=== PATIENT | male | born 1970 | race Caucasian/White ===

== ENCOUNTER 2022-12-22 12:10 | Observation (INO) ==
--- NOTE | 2022-12-22 12:29 | Emergency Department Note ---
Impression & Plan Acute hypotension, Elevated lactic acid level ED Provider Note HISTORY OF PRESENT ILLNESS: Patient is a 52-year-old male presenting with hypotension and bradycardia. Patient was at an outpatient clinic getting an endoscopy done when postprocedure he was noted to be hypotensive and bradycardic. On review of documentation, he was given a total of 100 mg IV propofol and 80 mg IV lidocaine for the procedure. Throughout the procedure, he required multiple doses of esmolol, totaling 80 mg and 600 mcg IV phenylephrine. Given his persistent hypotension and bradycardia, he was transferred to the ER. In route, patient was vitally stable per EMS. On arrival to the ER, patient has no complaints. He denies any chest pain or shortness of breath. He does not wear any supplemental oxygen at home. Denies any DVT or PE history. ROS: as above PHYSICAL EXAM: Constitutional: Patient appears in no acute distress. HENT: Head: Normocephalic and atraumatic. Eyes: EOMI, PERRL Mouth/Throat: Mucous membranes moist. Neck: Trachea midline. Neck supple. Cardiovascular: Tachycardic with irregularly irregular rhythm. No murmurs, rubs or gallops. Intact distal pulses. Pulmonary/Chest: No respiratory distress. Breath sounds clear and equal bilaterally. No wheezes or rales. Abdominal: Abdomen soft, no tenderness, rebound or guarding. Musculoskeletal: No edema, tenderness or deformity noted. Skin: Warm and dry. No rash, erythema, pallor or cyanosis Psychiatric: Appropriate mood and affect for situation. Neurological: Alert and keenly responsive. CN II-XII grossly intact, moving all extremities equally and fully. MDM: - Vitals signs showed hypertension and tachycardia. - History obtained via patient and EMS. Patient presents with hypotension and bradycardia. Patient was at outpatient clinic to get an endoscopy when he was noted to be hypotensive and bradycardic postprocedure. He was given multiple medications postprocedure with little improvement in his blood pressures and was sent to the ER for further evaluation. Patient denies any DVT or PE history. He has no complaints on arrival to the ER. - Chronic conditions affecting care: HTN; HLD; COPD; Afib - Differential diagnoses include, but are not limited to: Sepsis; pneumonia; UTI; medication side effect; electrolyte abnormality dysrhythmia - Order placed for continuous cardiac monitoring. At this time, monitor showed rate of 85 bpm with irregular rhythm, per my interpretation. - External medical records reviewed. Documentation from [facility] was reviewed. Patient was given a total of 80 mg IV esmolol, 600 mcg IV phenylephrine, 100 mg IV propofol and 80 mg IV lidocaine during procedure today. - EKG reviewed by myself showed atrial fibrillation with rapid ventricular rate. Rate 141 bpm. QTc 462. No acute ischemic changes - Unable to rate control the patient with Cardizem at this time, given his hypotension. - Laboratory workup interpreted by myself showed normal WBC; stable electrolytes; slight transaminitis (AST 50; ALT 85); normal troponin; slightly elevated BNP (166) - CXR showed left basilar opacity, per my interpretation. - Patient given a total of 2L NS (between EMS prehopital and ER administration). - Patient's BP trended down while in the ER and despite the 2L NS, he remained hypotensive and tachycardic. Decision was made to start patient on levophed for BP support. His BP improved and his HR became more controlled in the 80s. Patient was taken off of the Levophed and his blood pressure again dropped. Levophed was restarted. After about 30 minutes, he was weaned off of Levophed and blood pressure remained steady. - Repeat lactic acid level was improved after 2 L normal saline fluid hydration. - Blood cultures were obtained, but antibiotics were not administered as do not think this is sepsis in origin. He has a normal white blood cell count normal procalcitonin level. He has not had any fevers. Believe his persistent hypo tension is likely secondary to his procedure and medication administration earlier today. - CT PE negative for pulmonary embolism. - Discussion was had with social services analyst about patient's case and need for admission - Hospitalist consulted for admission - Patient admitted to [facility] Hospitalist service for further evaluation and management. I provided 43 minutes of critical care time to this patient's care outside of billable procedures. ASSESSMENT AND PLAN: Diagnosis: hypotension; elevated lactic acid level Plan: admit Past Med/Surg History Medical History (Updated 12/22/22 @ 16:18 by Ibis Cuevas MD) Anxiety Atrial fibrillation Chronic obstructive pulmonary disease inhalers daily Hyperlipidemia Hypertension Osteoarthritis Surgical History History of tooth extraction under local Family History Brother Family hx of colon cancer Other No family history of adverse response to anesthesia Social History Smoking Status: Unknown if ever smoked Tobacco Type: Cigarettes Cigarettes Per Day: 10 a day; Second Hand Exposure: Yes (fiance smokes, dad smoked); Do You Dip or Chew Tobacco: No; Hx Alcohol Use: Yes Alcohol type: beer, wine and hard liquor Hx Substance Use: No Preferred Language: Estonian Communication Ability: Effective 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 Beliefs That Will Affect Care: None Current Living Situation: Other Current Living Situation Comment: Lives with chrissie Feels Safe at Home: Yes Assistive Devices: Glasses Allergies Allergies Allergy/AdvReac Type Severity Reaction Status Date / Time No Known Allergies Allergy Mild Verified 01/22/21 23:24 Home Meds Home Medications Medication Instructions Recorded Confirmed albuterol sulfate 90 mcg/actuation 1 puff inhalation Q4 PRN Shortness 05/22/18 12/22/22 aerosol inhaler Of Breath aspirin 325 mg tablet 325 mg PO QAM 05/22/18 12/22/22 atorvastatin 20 mg tablet 20 mg PO HS 05/22/18 12/22/22 fluticasone propionate 110 2 puff inhalation BID PRN 05/22/18 12/22/22 mcg/actuation HFA aerosol inhaler Shortness Of Breath (Flovent HFA) metoprolol tartrate 25 mg tablet 12.5 mg PO BID 05/22/18 12/22/22 omega-3 fatty acids-fish oil 360 1 cap PO QAM 05/22/18 12/22/22 mg-1,200 mg capsule (Fish Oil) tiotropium bromide 18 mcg capsule 1 cap inhalation QAM 05/22/18 12/22/22 with inhalation device (Spiriva with HandiHaler) aripiprazole 15 mg tablet 7.5 mg PO DAILY 01/22/21 12/22/22 buspirone 10 mg tablet 10 mg PO BID PRN Anxiety 01/22/21 12/22/22 escitalopram oxalate 5 mg tablet 5 mg PO QAM 01/22/21 12/22/22 gabapentin 300 mg capsule 600 mg PO BID 01/22/21 12/22/22 hydroxyzine HCl 10 mg tablet 10 mg PO QID PRN Anxiety 01/22/21 12/22/22 ipratropium 20 mcg-albuterol 100 1 puff inhalation QID 01/22/21 12/22/22 mcg/actuation mist for inhalation (Combivent Respimat) meloxicam 15 mg tablet 15 mg PO DAILY 01/22/21 12/22/22 omeprazole 20 mg capsule,delayed 20 mg PO DAILY 12/22/22 12/22/22 release Results & Data (ED) Vital Signs Vital Signs - 24 hr 12/22/22 12:23 12/22/22 13:00 12/22/22 12:30 Temperature 36.6 C Temperature Source Oral Pulse Rate 126 H 144 H 146 H Pulse Rate from SpO2 Sensor 88 Respiratory Rate 18 16 Blood Pressure 102/62 88/69 L Blood Pressure Mean 75 75 Blood Pressure Position Sitting Pulse Oximetry 91 91 Oxygen Delivery Method Room Air Room Air Sepsis Recent Fever Within 48 Hours No Sepsis New/Unexplained Change in Mental Status No Sepsis Action Taken by Nursing No Action Required 12/22/22 12:47 12/22/22 13:02 12/22/22 13:15 Temperature Temperature Source Pulse Rate 122 H 131 H 100 H Pulse Rate from SpO2 Sensor 83 98 H 91 H Respiratory Rate 18 14 16 Blood Pressure 89/68 L 83/64 L 89/54 L Blood Pressure Mean 75 70 65 Blood Pressure Position Pulse Oximetry 93 94 93 Oxygen Delivery Method Room Air Room Air Room Air Sepsis Recent Fever Within 48 Hours Sepsis New/Unexplained Change in Mental Status Sepsis Action Taken by Nursing 12/22/22 13:30 12/22/22 13:46 12/22/22 13:54 Temperature Temperature Source Pulse Rate 116 H 132 H 96 H Pulse Rate from SpO2 Sensor 90 100 H 98 H Respiratory Rate 18 15 18 Blood Pressure 92/62 L 71/55 L 126/77 Blood Pressure Mean 72 60 93 Blood Pressure Position Pulse Oximetry 96 95 93 Oxygen Delivery Method Room Air Room Air Room Air Sepsis Recent Fever Within 48 Hours Sepsis New/Unexplained Change in Mental Status Sepsis Action Taken by Nursing 12/22/22 13:56 12/22/22 14:00 12/22/22 14:05 Temperature Temperature Source Pulse Rate 82 90 89 Pulse Rate from SpO2 Sensor 79 89 84 Respiratory Rate 16 18 18 Blood Pressure 106/82 105/87 116/88 Blood Pressure Mean 90 93 97 Blood Pressure Position Pulse Oximetry 96 96 95 Oxygen Delivery Method Room Air Room Air Room Air Sepsis Recent Fever Within 48 Hours Sepsis New/Unexplained Change in Mental Status Sepsis Action Taken by Nursing 12/22/22 14:14 12/22/22 14:16 12/22/22 14:26 Temperature Temperature Source Pulse Rate 86 83 Pulse Rate from SpO2 Sensor 82 83 Respiratory Rate 16 16 16 Blood Pressure 155/112 H 153/115 H 154/91 H Blood Pressure Mean 117 127 112 Blood Pressure Position Pulse Oximetry 96 97 97 Oxygen Delivery Method Room Air Room Air Room Air Sepsis Recent Fever Within 48 Hours Sepsis New/Unexplained Change in Mental Status Sepsis Action Taken by Nursing 12/22/22 14:31 12/22/22 14:36 12/22/22 14:40 Temperature Temperature Source Pulse Rate 84 84 111 H Pulse Rate from SpO2 Sensor 83 82 111 H Respiratory Rate 18 20 17 Blood Pressure 149/111 H 138/100 85/69 L Blood Pressure Mean 123 112 74 Blood Pressure Position Pulse Oximetry 96 96 93 Oxygen Delivery Method Room Air Room Air Room Air Sepsis Recent Fever Within 48 Hours Sepsis New/Unexplained Change in Mental Status Sepsis Action Taken by Nursing 12/22/22 14:50 12/22/22 14:55 12/22/22 15:01 Temperature Temperature Source Pulse Rate 100 H 87 71 Pulse Rate from SpO2 Sensor 102 H 92 H 77 Respiratory Rate 18 16 16 Blood Pressure 87/63 L 103/78 134/96 Blood Pressure Mean 71 86 108 Blood Pressure Position Pulse Oximetry 92 95 97 Oxygen Delivery Method Room Air Room Air Room Air Sepsis Recent Fever Within 48 Hours Sepsis New/Unexplained Change in Mental Status Sepsis Action Taken by Nursing 12/22/22 15:05 12/22/22 15:10 12/22/22 15:15 Temperature Temperature Source Pulse Rate 88 75 76 Pulse Rate from SpO2 Sensor 91 H 77 72 Respiratory Rate 18 18 12 Blood Pressure 140/82 162/120 H 143/108 H Blood Pressure Mean 101 134 119 Blood Pressure Position Pulse Oximetry 94 96 95 Oxygen Delivery Method Room Air Room Air Room Air Sepsis Recent Fever Within 48 Hours Sepsis New/Unexplained Change in Mental Status Sepsis Action Taken by Nursing 12/22/22 15:20 12/22/22 15:25 12/22/22 15:42 Temperature Temperature Source Pulse Rate 86 94 H 114 H Pulse Rate from SpO2 Sensor 82 Respiratory Rate 10 L 12 12 Blood Pressure 146/107 H 156/107 H 105/72 Blood Pressure Mean 120 123 83 Blood Pressure Position Pulse Oximetry 96 94 94 Oxygen Delivery Method Room Air Room Air Room Air Sepsis Recent Fever Within 48 Hours Sepsis New/Unexplained Change in Mental Status Sepsis Action Taken by Nursing Laboratory Data 12/22/22 12:41 12/22/22 12:41 Lab Results 12/22/22 12/22/22 12/22/22 Range/Units 12:41 12:41 12:41 WBC 8.72 (4.8-10.8) K/ul RBC 4.62 L (4.70-6.10) M/uL Hgb 15.0 (14.0-18.0) g/dl Hct 42.3 (42.0-52.0) % MCV 91.6 (80.0-100.0) fL MCH 32.5 (25.0-34.0) pg MCHC 35.5 (32.0-36.0) g/dL RDW Std Deviation 41.2 (36.4-46.3) fL RDW Coeff of Nhi 12.4 (11.5-14.5) % Plt Count 194 (130-400) K/uL MPV 11.2 (9.4-12.4) fL Immature Gran % (Auto) 0.7 % Neut % (Auto) 63.5 % Lymph % (Auto) 22.7 % Mchenry % (Auto) 7.1 % Eos % (Auto) 5.2 % Baso % (Auto) 0.8 % Neut # (Auto) 5.54 (1.40-6.50) K/uL Lymph # (Auto) 1.98 (1.20-3.40) K/uL Mchenry # (Auto) 0.62 H (0.11-0.59) K/uL Eos # (Auto) 0.45 (0.00-0.50) K/uL Baso # (Auto) 0.07 (0.00-0.20) K/uL Immature Gran # (Auto) 0.06 (0.01-0.20) K/uL PT 11.3 (9.0-12.0) Seconds INR 1.0 (0.9-1.1) Sodium 137 (136-145) mmol/L Potassium 4.5 (3.5-5.1) mmol/L Chloride 104 (98-107) mmol/L Carbon Dioxide 27 (21-32) mmol/L Anion Gap 6 (3-11) BUN 19 (6-23) mg/dl Creatinine 1.18 (0.6-1.4) mg/dl Est Cr Clr Drug Dosing 98.3 ml/min Est GFR ( Amer) 80.6 ml/min Est GFR (Non-Af Amer) 69.5 ml/min BUN/Creatinine Ratio 16.1 (10-20) Glucose 90 (70-99(Fasting)) mg/dl Lactate (0.4-2.0) mmol/L Calcium 8.1 L (8.6-10.3) mg/dl Total Bilirubin 0.6 (0.2-1.0) mg/dl AST 50 H (13-39) U/L ALT 85 H (7-52) U/L Alkaline Phosphatase 78 (34-104) U/L Troponin I High Sens 8.8 (0-20) pg/ml B-Natriuretic Peptide (0-100) pg/ml Total Protein 6.0 (6.0-8.3) gm/dl Albumin 3.8 (3.4-5.0) gm/dl Globulin 2.2 L (2.5-4.0) gm/dl Albumin/Globulin Ratio 1.7 (0.9-2) Procalcitonin (0-0.5) ng/ml 12/22/22 12/22/22 12/22/22 Range/Units 12:41 14:12 14:12 WBC (4.8-10.8) K/ul RBC (4.70-6.10) M/uL Hgb (14.0-18.0) g/dl Hct (42.0-52.0) % MCV (80.0-100.0) fL MCH (25.0-34.0) pg MCHC (32.0-36.0) g/dL RDW Std Deviation (36.4-46.3) fL RDW Coeff of Nhi (11.5-14.5) % Plt Count (130-400) K/uL MPV (9.4-12.4) fL Immature Gran % (Auto) % Neut % (Auto) % Lymph % (Auto) % Mchenry % (Auto) % Eos % (Auto) % Baso % (Auto) % Neut # (Auto) (1.40-6.50) K/uL Lymph # (Auto) (1.20-3.40) K/uL Mchenry # (Auto) (0.11-0.59) K/uL Eos # (Auto) (0.00-0.50) K/uL Baso # (Auto) (0.00-0.20) K/uL Immature Gran # (Auto) (0.01-0.20) K/uL PT (9.0-12.0) Seconds INR (0.9-1.1) Sodium (136-145) mmol/L Potassium (3.5-5.1) mmol/L Chloride (98-107) mmol/L Carbon Dioxide (21-32) mmol/L Anion Gap (3-11) BUN (6-23) mg/dl Creatinine (0.6-1.4) mg/dl Est Cr Clr Drug Dosing ml/min Est GFR ( Amer) ml/min Est GFR (Non-Af Amer) ml/min BUN/Creatinine Ratio (10-20) Glucose (70-99(Fasting)) mg/dl Lactate 2.3 H* (0.4-2.0) mmol/L Calcium (8.6-10.3) mg/dl Total Bilirubin (0.2-1.0) mg/dl AST (13-39) U/L ALT (7-52) U/L Alkaline Phosphatase (34-104) U/L Troponin I High Sens (0-20) pg/ml B-Natriuretic Peptide 166 H (0-100) pg/ml Total Protein (6.0-8.3) gm/dl Albumin (3.4-5.0) gm/dl Globulin (2.5-4.0) gm/dl Albumin/Globulin Ratio (0.9-2) Procalcitonin < 0.05 (0-0.5) ng/ml 12/22/22 Range/Units 16:00 WBC (4.8-10.8) K/ul RBC (4.70-6.10) M/uL Hgb (14.0-18.0) g/dl Hct (42.0-52.0) % MCV (80.0-100.0) fL MCH (25.0-34.0) pg MCHC (32.0-36.0) g/dL RDW Std Deviation (36.4-46.3) fL RDW Coeff of Nhi (11.5-14.5) % Plt Count (130-400) K/uL MPV (9.4-12.4) fL Immature Gran % (Auto) % Neut % (Auto) % Lymph % (Auto) % Mchenry % (Auto) % Eos % (Auto) % Baso % (Auto) % Neut # (Auto) (1.40-6.50) K/uL Lymph # (Auto) (1.20-3.40) K/uL Mchenry # (Auto) (0.11-0.59) K/uL Eos # (Auto) (0.00-0.50) K/uL Baso # (Auto) (0.00-0.20) K/uL Immature Gran # (Auto) (0.01-0.20) K/uL PT (9.0-12.0) Seconds INR (0.9-1.1) Sodium (136-145) mmol/L Potassium (3.5-5.1) mmol/L Chloride (98-107) mmol/L Carbon Dioxide (21-32) mmol/L Anion Gap (3-11) BUN (6-23) mg/dl Creatinine (0.6-1.4) mg/dl Est Cr Clr Drug Dosing ml/min Est GFR ( Amer) ml/min Est GFR (Non-Af Amer) ml/min BUN/Creatinine Ratio (10-20) Glucose (70-99(Fasting)) mg/dl Lactate 2.0 (0.4-2.0) mmol/L Calcium (8.6-10.3) mg/dl Total Bilirubin (0.2-1.0) mg/dl AST (13-39) U/L ALT (7-52) U/L Alkaline Phosphatase (34-104) U/L Troponin I High Sens (0-20) pg/ml B-Natriuretic Peptide (0-100) pg/ml Total Protein (6.0-8.3) gm/dl Albumin (3.4-5.0) gm/dl Globulin (2.5-4.0) gm/dl Albumin/Globulin Ratio (0.9-2) Procalcitonin (0-0.5) ng/ml Administered Medications Norepinephrine Bitartrate (Levophed/D5w) 4 mg in 250 mls @ 26.288 mls/hr IV .Q9H31M [facility]; Protocol Stop: 01/21/23 13:59 Last Titration: 12/22/22 15:35 Dose: 0 mcg/kg/min, 0 mls/hr Documented By: Admin: 12/22/22 13:52 Dose: 0.05 mcg/kg/min, 26.3 mls/hr Documented By: QGV Co-signed By: AM Discontinued Medications Sodium Chloride (Nss) 500 mls @ 999 mls/hr IV .Q31M ONE Stop: 12/22/22 13:15 Last Infusion: 12/22/22 13:45 Dose: 0 mls/hr Documented By: Admin: 12/22/22 12:59 Dose: 999 mls/hr Documented By: QGV Sodium Chloride (Nss) 1,000 mls @ 999 mls/hr IV .Q1H1M ONE Stop: 12/22/22 14:17 Last Infusion: 12/22/22 16:03 Dose: 0 mls/hr Documented By: Admin: 12/22/22 13:45 Dose: 999 mls/hr Documented By: QGV Ioversol (Optiray 320 500ml) 112 ml IV ONCE ONE Stop: 12/22/22 15:38 Last Admin: 12/22/22 15:37 Dose: 112 ml Documented By: CECY Imaging Data Radiologist's Impression: Chest X-Ray 12/22/22 12:29 XR chest 1V portable CLINICAL HISTORY: hypoxia COMPARISON STUDY: No previous studies for comparison. FINDINGS: No pneumothorax or pleural effusion is noted. Apparent left basilar opacity is likely artifactual. Exam is compromised by suboptimal penetration. Cardiac size is at upper limits of normal. There is no evidence for pulmonary edema. Lung volumes are mildly diminished. IMPRESSION: 1. No definite acute cardiopulmonary findings. 2. Apparent left basilar opacity which is likely artifactual. ACT 112: Negative or not required by law. Electronically signed by: Hollis Cheung M.D. 12/22/2022 1:11 PM Chest CTA 12/22/22 15:03 CT ANGIOGRAPHY OF THE CHEST, PULMONARY EMBOLUS PROTOCOL CLINICAL HISTORY: Bradycardia and hypotension during recent procedure. Evaluate for pulmonary embolus. COMPARISON STUDY: Chest radiograph performed earlier today. TECHNIQUE: Following IV administration of 112 mL of Optiray, helical axial images of the chest were obtained utilizing the pulmonary embolus protocol. Maximal intensity projections and sagittal and coronal reformats were viewed on an independent 3D workstation. IV contrast was administered without complication. Automated exposure control was utilized for the study. A dose lo wering technique was utilized adhering to the principles of ALARA. CT DOSE: 933.97 mGy.cm FINDINGS: No pulmonary emboli are identified although the lower lobe segmental and subsegmental pulmonary arteries are suboptimally opacified. There is no thoracic aortic dissection. Size of the heart is normal. There is no pericardial effusion. There is no thoracic lymphadenopathy. No pneumothorax or pleural effusion is present. Central airways are patent. Groundglass and linear densities favor atelectasis. No consolidation is identified. No pneumomediastinum is present. Hepatic steatosis is incidentally noted. IMPRESSION: 1. No pulmonary emboli identified although lower lobe segmental and subsegmental pulmonary arteries suboptimally opacified. 2. No acute intrathoracic findings. 3. Hepatic steatosis. ACT 112: Negative or not required by law. Electronically signed by: Hollis Cheung M.D. 12/22/2022 4:18 PM Discharge Plan Visit Data Chief Complaint: Hypotension Stated Complaint: HYPOTENSION ED Provider: Ibis Cuevas Discharge Problem: Acute hypotension, Elevated lactic acid level Forms Stand Alone Forms: [facility] Prescriptions Prescriptions: No Action albuterol sulfate 90 mcg/actuation Hfa Aerosol Inhaler 1 puff INHALATION Q4 PRN (Reason: Shortness Of Breath) atorvastatin 20 mg Tablet 20 mg PO HS aspirin 325 mg Tablet 325 mg PO QAM fluticasone propionate [Flovent HFA] 110 mcg/actuation Hfa Aerosol Inhaler 2 puff INHALATION BID PRN (Reason: Shortness Of Breath) metoprolol tartrate 25 mg Tablet 12.5 mg PO BID tiotropium bromide [Spiriva with HandiHaler] 18 mcg Capsule, W/Inhalation Device 1 cap INHALATION QAM Rx Instructions: DID NOT START YET omega-3 fatty acids-fish oil [Fish Oil] 360-1,200 mg Capsule 1 cap PO QAM omeprazole 20 mg capsule,delayed release(DR/EC) 20 mg PO DAILY Combivent Respimat 20-100 mcg/actuation mist 1 puff INHALATION QID meloxicam 15 mg tablet 15 mg PO DAILY buspirone 10 mg tablet 10 mg PO BID PRN (Reason: Anxiety) gabapentin 300 mg capsule 600 mg PO BID hydroxyzine HCl 10 mg tablet 10 mg PO QID PRN (Reason: Anxiety) aripiprazole 15 mg tablet 7.5 mg PO DAILY escitalopram oxalate 5 mg tablet 5 mg PO QAM Referrals Referrals: Louisa Erickson MD [Primary Care Provider] -
[2022-12-22] MEDS ORDERED: SODIUM CHLORIDE 0.9% 500 ML IV ONE (12:45)
[2022-12-22 13:04] LABS: Basophils # (auto) 0.07 K/uL (0.00-0.20); Basophils % (auto) 0.8 %; Eosinophils # (auto) 0.45 K/uL (0.00-0.50); Eosinophils % (auto) 5.2 %; Hematocrit (blood only) 42.3 % (42.0-52.0); Immature Granulocytes # (auto) 0.06 K/uL (0.01-0.20); Immature Granulocytes % (auto) 0.7 %; Lymphocytes # (auto) 1.98 K/uL (1.20-3.40); Lymphocytes % (auto) 22.7 %; Mean Corpuscular Hemoglobin 32.5 pg (25.0-34.0); Mean Corpuscular Hgb Conc 35.5 g/dL (32.0-36.0); Mean Corpuscular Volume 91.6 fL (80.0-100.0); Mean Platelet Volume 11.2 fL (9.4-12.4); Monocytes # (auto) 0.62 K/uL (0.11-0.59); Monocytes % (auto) 7.1 %; Neutrophils # (auto) 5.54 K/uL (1.40-6.50); Neutrophils % (auto) 63.5 %; Platelet Count 194 K/uL (130-400); RDW Coefficient of Variation 12.4 % (11.5-14.5); RDW Standard Deviation 41.2 fL (36.4-46.3); Red Blood Count 4.62 M/uL (4.70-6.10); White Blood Count 8.72 K/ul (4.8-10.8)
--- NOTE | 2022-12-22 13:12 | XRay Report ---
XR chest 1V portable CLINICAL HISTORY: hypoxia COMPARISON STUDY: No previous studies for comparison. FINDINGS: No pneumothorax or pleural effusion is noted. Apparent left basilar opacity is likely artif actual. Exam is compromised by suboptimal penetration. Cardiac size is at upper limits of normal. The re is no evidence for pulmonary edema. Lung volumes are mildly diminished. IMPRESSION: 1. No definite acute cardiopulmonary findings. 2. Apparent left basilar opacity which is likely artifactual. ACT 112: Negative or not required by law. Electronically signed by: Hollis Cheung M.D. 12/22/2022 1:11 PM
[2022-12-22] MEDS ORDERED: SODIUM CHLORIDE 0.9% 1,000 ML IV ONE (13:17)
[2022-12-22 13:20] LABS: Albumin Globulin Ratio 1.7 (0.9-2); Albumin Level 3.8 gm/dl (3.4-5.0); BUN Creatinine Ratio 16.1 (10-20); Bilirubin,Total 0.6 mg/dl (0.2-1.0); Calcium 8.1 mg/dl (8.6-10.3); Creatinine Clr Calc Pharmacy 98.3 ml/min; Est GFR (African American) 80.6 ml/min; Est GFR (Non-African American) 69.5 ml/min; Globulin 2.2 gm/dl (2.5-4.0); Potassium 4.5 mmol/L (3.5-5.1)
[2022-12-22 13:26] LABS: Troponin I High Sensitivity 8.8 pg/ml (0-20)
[2022-12-22 13:38] LABS: Prothrombin Time 11.3 Seconds (9.0-12.0)
[2022-12-22] MEDS ORDERED: STAT IV Infusion **Titration per Protocol STA (13:46)
[2022-12-22] MEDS ORDERED: NOREPINEPHRINE/D5W 4 MG/250 ML PLCT IV SCH (14:00)
[2022-12-22] MEDS ORDERED: OPTIRAY 320 500ml IV ONE (15:37)
--- NOTE | 2022-12-22 16:20 | CT Scan Report ---
CT ANGIOGRAPHY OF THE CHEST, PULMONARY EMBOLUS PROTOCOL CLINICAL HISTORY: Bradycardia and hypotension during recent procedure. Evaluate for pulmonary embolus . COMPARISON STUDY: Chest radiograph performed earlier today. TECHNIQUE: Following IV administration of 112 mL of Optiray, helical axial images of the chest were o btained utilizing the pulmonary embolus protocol. Maximal intensity projections and sagittal and cor onal reformats were viewed on an independent 3D workstation. IV contrast was administered without co mplication. Automated exposure control was utilized for the study. A dose lowering technique was ut ilized adhering to the principles of ALARA. CT DOSE: 933.97 mGy.cm FINDINGS: No pulmonary emboli are identified although the lower lobe segmental and subsegmental pulm onary arteries are suboptimally opacified. There is no thoracic aortic dissection. Size of the heart is normal. There is no pericardial effusion. There is no thoracic lymphadenopathy. No pneumothorax or pleural effusion is present. Central airways are patent. Groundglass and linear densities favor atel ectasis. No consolidation is identified. No pneumomediastinum is present. Hepatic steatosis is incide ntally noted. IMPRESSION: 1. No pulmonary emboli identified although lower lobe segmental and subsegmental pulmonary arteries s uboptimally opacified. 2. No acute intrathoracic findings. 3. Hepatic steatosis. ACT 112: Negative or not required by law. Electronically signed by: Hollis Cheung M.D. 12/22/2022 4:18 PM
--- NOTE | 2022-12-22 16:29 | Electrocardiogram Report ---
Test Reason : Blood Pressure : / mmHG Vent. Rate : 141 BPM Atrial Rate : 000 BPM P-R Int : 000 ms QRS Dur : 076 ms QT Int : 302 ms P-R-T Axes : 000 025 029 degrees QTc Int : 462 ms Atrial fibrillation with rapid ventricular response Abnormal ECG When compared with ECG of 22-JAN-2021 21:49, Atrial fibrillation has replaced Sinus rhythm Vent. rate has increased BY 64 BPM T wave inversion now evident in Inferior leads Confirmed by Ruben Snyder ([id number]) on 12/22/2022 4:28:48 PM Referred By: Confirmed By:Ruben Snyder
--- NOTE | 2022-12-22 16:35 | History & Physical Report ---
Date of Service December 22, 2022 Assessment & Plan (1) Atrial fibrillation with RVR: (2) Paroxysmal atrial fibrillation: (3) Acute hypotension: Plan: Patient is 52 y/o M with PMH paroxysmal atrial fibrillation, COPD, KEANU, anxiety, depression, GERD, HLD presented to ER from outpatient endoscopy suite for hypotension after EGD. Patient had reported desaturations at end of procedure that resolved with hand mask ventilation. Had subsequent bradycardia down into the 20s and was given glycopyrrolate emergently with reported improvement is reported esmolol given due to tachycardia. Had Afib with rates 110s. Patient required continued pressor support in recovery and patient was without any medical complaints or symptoms. Upon ER arrival Heart rate in 120s initial BP 102/62 trended down SBP in the 70- 80s. He had total 2L NSS and was started on norepinephrine drip. BPs improved and norepinephrine discontinued. Patient heart rate varied in high 90s to 120s with SBP 105. Hypotension current improved, Suspect some relation to Afib RVR. Current SBP 119 HR 100-120's Negative initial HS troponin Monitor on telemetry Dose metoprolol tartrate po now Patient not on anticoagulation secondary to history intellectual disability per cardiology outpatient note. Is on aspirin Continue metoprolol tartrate TSH, magnesium levels pending Echo Cardiology consult (4) Elevated LFTs: Plan: T bili: 0.6, AST: 50, ALT: 85, Alk Phos: 78. LFTs WNL on 07/02/22 Patient reports occasional ETOH use Monitor LFTs (5) Chronic obstructive pulmonary disease: Plan: No signs exacerbation Continue home inhalers, as needed nebs (6) KEANU (obstructive sleep apnea): Plan: Noncompliant with CPAP (7) Intellectual disability: (8) Anxiety and depression: Plan: Continue Lexapro, Abilify, Buspirone (9) GERD (gastroesophageal reflux disease): Plan: Continue PPI (10) Hyperlipidemia: Plan: Continue atorvastatin DVT Prophylaxis Lovenox SQ Full Code as per discussion with pt Follows with Dr Erickson for routine care Pt was seen and care coordinated with Dr Reyes. See addendum History of Present Illness Chief Complaint: Hypotension Primary Care Provider: Louisa Erickson MD Patient is 52 y/o M with PMH paroxysmal atrial fibrillation, COPD, KEANU, anxiety, depression, GERD, HLD presented to ER from outpatient endoscopy suite for hypotension. History obtained from patient, outpatient chart review. Patient was having EGD at [facility] today. Anesthesia note reviewed and is reported patient had desaturations at end of procedure that resolved with hand mask ventilation. Patient had subsequent bradycardia down into the 20s and was given glycopyrrolate emergently with reported improvement is reported esmolol given due to tachycardia on top of baseline Afib with rates 110s. Patient required continued pressor support in recovery and patient was without any medical complaints or symptoms. He was transported to [facility] by EMS. Upon ER arrival Heart rate in 120s initial BP 102/62 trended down SBP in the 70-80s. He had total 2L NSS and was started on norepinephrine drip. BPs improved and norepinephrine discontinued. Patient heart rate varied into high 90s to 120s with SBP 105. Patient states that he thinks he took Toprol tartrate 25 mg this morning. Denies chest pain, shortness of breath, palpitations, dizziness. Patient was without any complaint except for that he feels hungry. Denies fever/chills, diaphoresis, N/V/D/C, LOPEZ, dizziness, syncope, vision changes, neck pain, cough, sore throat,rhinorrhea, abdominal pain, paresthesias, weakness, extremity edema, rashes, urinary symptoms. Allergies Allergy/AdvReac Type Severity Reaction Status Date / Time No Known Allergies Allergy Mild Verified 01/22/21 23:24 Home Medications Medication Instructions Recorded Confirmed Type albuterol sulfate 90 mcg/actuation 1 puff inhalation Q4 PRN Shortness 05/22/18 12/22/22 History aerosol inhaler Of Breath atorvastatin 20 mg tablet 20 mg PO HS 05/22/18 12/22/22 History metoprolol tartrate 25 mg tablet 25 mg PO BID 05/22/18 12/22/22 History omega-3 fatty acids-fish oil 360 1 cap PO QAM 05/22/18 12/22/22 History mg-1,200 mg capsule (Fish Oil) aripiprazole 15 mg tablet 7.5 mg PO HS 01/22/21 12/22/22 History buspirone 10 mg tablet 10 mg PO BID PRN Anxiety 01/22/21 12/22/22 History escitalopram oxalate 5 mg tablet 5 mg PO QAM 01/22/21 12/22/22 History gabapentin 300 mg capsule 600 mg PO BID 01/22/21 12/22/22 History ipratropium 20 mcg-albuterol 100 1 puff inhalation QID 01/22/21 12/22/22 History mcg/actuation mist for inhalation (Combivent Respimat) meloxicam 15 mg tablet 15 mg PO DAILY 01/22/21 12/22/22 History aspirin 81 mg tablet,delayed 81 mg PO DAILY 12/22/22 12/22/22 History release fluticasone 250 mcg-salmeterol 50 1 inh inhalation BID 12/22/22 12/22/22 History mcg/dose blistr powdr for inhalation omeprazole 20 mg capsule,delayed 20 mg PO DAILY 12/22/22 12/22/22 History release Past Med/Surg History Medical History (Updated 12/22/22 @ 17:31 by Heidi Cook PA-C) Anxiety Anxiety and depression Atrial fibrillation Chronic obstructive pulmonary disease inhalers daily GERD (gastroesophageal reflux disease) Hyperlipidemia Hypertension Intellectual disability KEANU (obstructive sleep apnea) Osteoarthritis Paroxysmal atrial fibrillation Surgical History History of tooth extraction under local Family History Brother Family hx of colon cancer Other No family history of adverse response to anesthesia Social History (Updated 12/22/22 @ 17:41 by Heidi Cook PA-C) Smoking Status: Former smoker Tobacco Type: Cigarettes Cigarettes Per Day: 10 a day; Second Hand Exposure: Yes (fiance smokes, dad smoked); Do You Dip or Chew Tobacco: No; Hx Alcohol Use: Yes Alcohol type: beer Hx Substance Use: No Preferred Language: Persian Communication Ability: Effective [employer] Director Required: No Beliefs That Will Affect Care: None Current Living Situation: Other Current Living Situation Comment: Lives with chrissie Feels Safe at Home: Yes Assistive Devices: Glasses Review of Systems Review of Systems: All systems reviewed & are unremarkable except as noted in HPI & below Physical Exam Physical Exam: General: no acute distress, +obese Head: normocephalic, atraumatic Eyes:conjunctiva non-injected, anicteric ENT: normal inspection external ears, nose, mucous membranes moist, poor dentition Neck: supple, trachea midline Lungs: clear, no respiratory distress, no wheezing/rhonchi/rales CV: irregularly irregular, rate 120, no murmur, no pretibial edema Abd: +protuberant, normal BS, soft, non-tender Ext: no cyanosis, no calf tenderness Neuro: A&O x 3, no focal deficits noted Skin: warm, dry Results & Data Results & Data Vital Signs (Past 12 Hours) Vital Signs Temp Pulse Resp BP Pulse Ox O2 Del Method 12/22/22 15:42 114 H 12 105/72 94 Room Air 12/22/22 15:25 94 H 12 156/107 H 94 Room Air 12/22/22 15:20 86 10 L 146/107 H 96 Room Air 12/22/22 15:15 76 12 143/108 H 95 Room Air 12/22/22 15:10 75 18 162/120 H 96 Room Air 12/22/22 15:05 88 18 140/82 94 Room Air 12/22/22 15:01 71 16 134/96 97 Room Air 12/22/22 14:55 87 16 103/78 95 Room Air 12/22/22 14:50 100 H 18 87/63 L 92 Room Air 12/22/22 14:40 111 H 17 85/69 L 93 Room Air 12/22/22 14:36 84 20 138/100 96 Room Air 12/22/22 14:31 84 18 149/111 H 96 Room Air 12/22/22 14:26 83 16 154/91 H 97 Room Air 12/22/22 14:16 86 16 153/115 H 97 Room Air 12/22/22 14:14 16 155/112 H 96 Room Air 12/22/22 14:05 89 18 116/88 95 Room Air 12/22/22 14:00 90 18 105/87 96 Room Air 12/22/22 13:56 82 16 106/82 96 Room Air 12/22/22 13:54 96 H 18 126/77 93 Room Air 12/22/22 13:46 132 H 15 71/55 L 95 Room Air 12/22/22 13:30 116 H 18 92/62 L 96 Room Air 12/22/22 13:15 100 H 16 89/54 L 93 Room Air 12/22/22 13:02 131 H 14 83/64 L 94 Room Air 12/22/22 12:47 122 H 18 89/68 L 93 Room Air 12/22/22 12:30 146 H 16 88/69 L 91 Room Air 12/22/22 13:00 144 H 12/22/22 12:23 36.6 C 126 H 18 102/62 91 Room Air Laboratory Results Short CBC 12/22/22 Range/Units 12:41 WBC 8.72 (4.8-10.8) K/ul Hgb 15.0 (14.0-18.0) g/dl Hct 42.3 (42.0-52.0) % Plt Count 194 (130-400) K/uL BMP 12/22/22 12:41 Sodium 137 Potassium 4.5 Chloride 104 Carbon Dioxide 27 BUN 19 Creatinine 1.18 Glucose 90 Calcium 8.1 L Liver Function 12/22/22 Range/Units 12:41 Total Bilirubin 0.6 (0.2-1.0) mg/dl AST 50 H (13-39) U/L ALT 85 H (7-52) U/L Alkaline Phosphatase 78 (34-104) U/L Albumin 3.8 (3.4-5.0) gm/dl Diagnostic Findings Chest X-Ray 12/22/22 12:29 XR chest 1V portable CLINICAL HISTORY: hypoxia COMPARISON STUDY: No previous studies for comparison. FINDINGS: No pneumothorax or pleural effusion is noted. Apparent left basilar opacity is likely artifactual. Exam is compromised by suboptimal penetration. Cardiac size is at upper limits of normal. There is no evidence for pulmonary edema. Lung volumes are mildly diminished. IMPRESSION: 1. No definite acute cardiopulmonary findings. 2. Apparent left basilar opacity which is likely artifactual. ACT 112: Negative or not required by law. Electronically signed by: Hollis Cheung M.D. 12/22/2022 1:11 PM Chest CTA 12/22/22 15:03 CT ANGIOGRAPHY OF THE CHEST, PULMONARY EMBOLUS PROTOCOL CLINICAL HISTORY: Bradycardia and hypotension during recent procedure. Evaluate for pulmonary embolus. COMPARISON STUDY: Chest radiograph performed earlier today. TECHNIQUE: Following IV administration of 112 mL of Optiray, helical axial images of the chest were obtained utilizing the pulmonary embolus protocol. Maximal intensity projections and sagittal and coronal reformats were viewed on an independent 3D workstation. IV contrast was administered without complication. Automated exposure control was utilized for the study. A dose lowering technique was utilized adhering to the principles of ALARA. CT DOSE: 933.97 mGy.cm FINDINGS: No pulmonary emboli are identified although the lower lobe segmental and subsegmental pulmonary arteries are suboptimally opacified. There is no thoracic aortic dissection. Size of the heart is normal. There is no pericardial effusion. There is no thoracic lymphadenopathy. No pneumothorax or pleural effusion is present. Central airways are patent. Groundglass and linear densiti es favor atelectasis. No consolidation is identified. No pneumomediastinum is present. Hepatic steatosis is incidentally noted. IMPRESSION: 1. No pulmonary emboli identified although lower lobe segmental and subsegmental pulmonary arteries suboptimally opacified. 2. No acute intrathoracic findings. 3. Hepatic steatosis. ACT 112: Negative or not required by law. Electronically signed by: Hollis Cheung M.D. 12/22/2022 4:18 PM ECG Additional Comments: Atrial fibrillation, rate 141. t wave inversion inferior leads per my interpretation Supervising Physician Co-Signing Physician Notes I have seen and discussed the case with the collaborating PARafael. I agree with the above H&P. I have reviewed and confirmed the patients medical history, the findings on physical examination, and the patients diagnosis and treatment plan with Joey HAMILTON and agree with the information documented. In short, Mr Sandoval is a 52 year old gentleman with afib, COPD who underwent EGD for dysphagia concerns and noted to have desaturations and hypotension post- procedurally. Patient admitted for monitoring given pressor requirement and tachycardia. VS noted for relative hypotension in 90s-100s, HR up to 130s, saturating well on room air. Labs unremarkable. CXR unremarkable. PE with tachycardia, but otherwise patient with cognitive delay, however, alert oriented and without complaint. Plan: Continue home lopressor with additional dose now of 12.5mg for rate control, admit on tele. Cards consult for optimization. Rest of plan as above.
[2022-12-22] MEDS ORDERED: METOPROLOL TARTRATE 25 MG TAB PO ONE (16:58)
[2022-12-22] MEDS ORDERED: LEVALBUTEROL 1.25 MG/3 ML NEB NEB PRN (19:56)
[2022-12-22] MEDS ORDERED: XOPENEX/ATROVENT 1.25mg/0.5MG NEB COMBO NEB PRN (19:56)
[2022-12-22] MEDS ORDERED: POLYETHYLENE (MIRALAX) 17 GM PACK PO PRN (19:56)
[2022-12-22] MEDS ORDERED: ONDANSETRON INJ 2 MG/ML 2 ML VIAL IV PRN (19:56)
[2022-12-22] MEDS ORDERED: ACETAMINOPHEN 325 MG TAB PO PRN (19:56)
[2022-12-22] MEDS ORDERED: busPIRone 5 MG TAB PO PRN (19:56)
[2022-12-22] MEDS ORDERED: IPRATROPIUM BROMIDE NEB SOLN 0.02% 2.5 ML VIAL INH PRN (19:56)
[2022-12-22] MEDS: ENOXAPARIN INJ 40 MG/0.4 ML SYR SQ SCH (22:43)
[2022-12-22] MEDS: ARIPiprazole 15 MG TAB PO SCH (22:44)
[2022-12-22] MEDS: GABAPENTIN 600 MG TAB PO SCH (22:45)
[2022-12-22] MEDS: ATORVASTATIN 20 MG TAB PO SCH (22:45)
[2022-12-22] MEDS: METOPROLOL TARTRATE 25 MG TAB PO SCH (22:45)
[2022-12-23 04:42] LABS: Hematocrit (blood only) 39.3 % (42.0-52.0); Hemoglobin 13.8 g/dl (14.0-18.0); Mean Corpuscular Hemoglobin 32.5 pg (25.0-34.0); Mean Corpuscular Hgb Conc 35.1 g/dL (32.0-36.0); Mean Corpuscular Volume 92.7 fL (80.0-100.0); Mean Platelet Volume 10.7 fL (9.4-12.4); Platelet Count 183 K/uL (130-400); RDW Coefficient of Variation 12.6 % (11.5-14.5); RDW Standard Deviation 42.7 fL (36.4-46.3); Red Blood Count 4.24 M/uL (4.70-6.10); White Blood Count 9.16 K/ul (4.8-10.8)
[2022-12-23 05:04] LABS: Albumin Globulin Ratio 1.8 (0.9-2); Albumin Level 3.8 gm/dl (3.4-5.0); BUN Creatinine Ratio 15.3 (10-20); Bilirubin,Total 0.7 mg/dl (0.2-1.0); Calcium 8.4 mg/dl (8.6-10.3); Creatinine Clr Calc Pharmacy 86.4 ml/min; Est GFR (African American) 80.6 ml/min; Est GFR (Non-African American) 69.5 ml/min; Globulin 2.1 gm/dl (2.5-4.0); Potassium 4.2 mmol/L (3.5-5.1); Total Protein 5.9 gm/dl (6.0-8.3)
[2022-12-23 05:19] LABS: Thyroid Stimulating Hormone 4.054 uIu/ml (0.300-4.500)
[2022-12-23] MEDS: METOPROLOL TARTRATE 25 MG TAB PO SCH (08:38)
[2022-12-23] MEDS: PANTOprazole 40 MG TAB PO SCH (08:39)
[2022-12-23] MEDS: ASPIRIN 81 MG ECTAB PO SCH (08:39)
[2022-12-23] MEDS: GABAPENTIN 600 MG TAB PO SCH ×2 (08:39→20:36)
[2022-12-23] MEDS: MELOXICAM 7.5 MG TAB PO SCH (08:39)
[2022-12-23] MEDS: ENOXAPARIN INJ 40 MG/0.4 ML SYR SQ SCH ×2 (08:39→20:35)
[2022-12-23] MEDS: FLUTICASONE/VILANTEROL 200/25MCG 14 PUFFS/INHALER INH SCH (08:40)
[2022-12-23] MEDS ORDERED: ESCITALOPRAM OXALATE 10 MG TAB PO SCH ×2 (09:00→21:00)
--- NOTE | 2022-12-23 12:21 | Cardiology Consultation ---
Date of Consultation December 23, 2022 Assessment & Plan (1) Atrial fibrillation with RVR: (2) KEANU (obstructive sleep apnea): (3) Chronic obstructive pulmonary disease: Plan Patient is a 52-year-old male with known paroxysmal likely persistent atrial fibrillation. Last EKG available July 2022 with patient in atrial fibrillation. Yesterday underwent EGD for symptoms of dysphagia at end of procedure had transient hypoxia hypoventilation and bradycardia. Supportive medical therapies resulted in rebound elevation and atrial fibrillation rates. EKGs without acute ischemic changes Patient asymptomatic currently Atrial fibrillation with controlled ventricular sponsor rate present Previous discussions well outlined in chart with patient with [id number] 2 score of 1 (hypertension) and relatively poor candidate for long anticoagulation. Recommendations: No further cardiac studies warranted. We will change metoprolol to tartrate to metoprolol succinate 25 mg twice per day for further heart rate control Continue treatment for obstructive sleep apnea History of Present Illness Reason for Consultation: Atrial fibrillation Requesting Physician: Dr. Ellis Attending Physician: Nikhil Ellis MD History of Present Illness Patient is a 52-year-old male with ongoing cardiac concerns 1. Paroxysmal approaching persistent atrial fibrillation 2. Obstructive sleep apnea 3. Obesity 4.History of tussive syncope 5. Hypertension 6. Chronic obstructive lung disease 7. Adjustment disorder on multiple medical regimen Patient is referred this admission having underwent elective EGD yesterday for symptoms of dysphagia. Following procedure patient had transient hypoxia and bradycardia with subsequent rebound elevation in baseline atrial fibrillation. Records reflect patient in atrial fibrillation at the time of procedure. Patient did require transient pressor support due to drop in blood pressure with norepinephrine quickly weaned. Due to marked hemodynamic lability at that time patient referred for in patient management Since ER presentation no further arrhythmias patient hemodynamically stable. Currently denies any chest pains, shortness of breath, dizziness or lightheadedness. Patient fair historian only Does take medications per patient but not sure if took medications yesterday morning No bleeding difficulties. No history of TIA or stroke. No history of diabetes or congestive heart failure Allergies Allergy/AdvReac Type Severity Reaction Status Date / Time No Known Allergies Allergy Mild Verified 01/22/21 23:24 Home Medications Medication Instructions Recorded Confirmed Type albuterol sulfate 90 mcg/actuation 1 puff inhalation Q4 PRN Shortness 05/22/18 12/22/22 History aerosol inhaler Of Breath atorvastatin 20 mg tablet 20 mg PO HS 05/22/18 12/22/22 History metoprolol tartrate 25 mg tablet 25 mg PO BID 05/22/18 12/22/22 History omega-3 fatty acids-fish oil 360 1 cap PO QAM 05/22/18 12/22/22 History mg-1,200 mg capsule (Fish Oil) aripiprazole 15 mg tablet 7.5 mg PO HS 01/22/21 12/22/22 History buspirone 10 mg tablet 10 mg PO BID PRN Anxiety 01/22/21 12/22/22 History escitalopram oxalate 5 mg tablet 5 mg PO QAM 01/22/21 12/22/22 History gabapentin 300 mg capsule 600 mg PO BID 01/22/21 12/22/22 History ipratropium 20 mcg-albuterol 100 1 puff inhalation QID 01/22/21 12/22/22 History mcg/actuation mist for inhalation (Combivent Respimat) meloxicam 15 mg tablet 15 mg PO DAILY 01/22/21 12/22/22 History aspirin 81 mg tablet,delayed 81 mg PO DAILY 12/22/22 12/22/22 History release fluticasone 250 mcg-salmeterol 50 1 inh inhalation BID 12/22/22 12/22/22 History mcg/dose blistr powdr for inhalation omeprazole 20 mg capsule,delayed 20 mg PO DAILY 12/22/22 12/22/22 History release Patient History Medical History Anxiety Anxiety and depression Atrial fibrillation Chronic obstructive pulmonary disease inhalers daily GERD (gastroesophageal reflux disease) Hyperlipidemia Hypertension Intellectual disability KEANU (obstructive sleep apnea) Osteoarthritis Paroxysmal atrial fibrillation Surgical History History of tooth extraction under local Family History Brother Family hx of colon cancer Other No family history of adverse response to anesthesia Social History (Updated 12/22/22 @ 17:41 by Heidi Cook PA-C) Smoking Status: Current every day smoker Tobacco Type: Cigarettes Cigarettes Per Day: 10 a day; Second Hand Exposure: No; Do You Dip or Chew Tobacco: No; Tobacco Cessation Education Requested by Patient: No Hx Alcohol Use: Yes Alcohol type: beer and hard liquor Hx Substance Use: No Preferred Language: Sinhala Communication Ability: Effective [employer] Nurse Required: No Beliefs That Will Affect Care: None Current Living Situation: Alone Current Living Situation Comment: in apartment complex Other Information That Helps Us Care for You: No Feels Safe at Home: Yes Safety Concerns: Feels Safe At This Time Assistive Devices: CPAP Review of Systems Review of Systems: All systems reviewed & are unremarkable except as noted in HPI & below Physical Exam Constitutional: WD/WN, vitals as above Eyes: PERRL, conjunctivae normal, anicteric sclerae ENMT: external ear and nose normal, oropharynx normal Neck: + thick neck Respiratory: normal respiratory effort, lungs clear to auscultation Cardiovascular: Rate/Rhythm: regular rhythm and + irregularly irregular Heart Sounds: no murmur Vessels: no JVD Extremities: no edema Gastrointestinal (Abdomen): normal bowel sounds, soft, nontender, no hepatosplenomegaly Musculoskeletal: no cyanosis or clubbing, extremities motor strength 5/5 Results & Data Vital Signs (Past 12 Hours) Vital Signs Pulse Resp BP Pulse Ox O2 Del Method O2 Flow Rate 12/23/22 11:00 94 H 23 97/81 L 94 Room Air 12/23/22 10:01 90 109/79 94 Room Air 12/23/22 09:30 88 116/79 12/23/22 08:30 95 H 19 107/74 95 12/23/22 08:03 95 H 13 101/80 93 Room Air 12/23/22 10:20 84 13 91 3 12/23/22 07:50 100 H 17 95 Room Air 12/23/22 07:43 92 H 12 109/86 96 Room Air 12/23/22 07:40 105 H 15 98 Nasal Cannula 2 12/23/22 07:20 125 H 19 64 L Room Air 12/23/22 07:09 91 H 12/23/22 06:00 94 H 24 123/83 93 12/23/22 05:04 92 H 24 112/77 92 12/23/22 04:30 90 18 119/101 H 92 12/23/22 03:30 93 H 18 103/76 95 12/23/22 03:00 98 H 16 131/88 94 Laboratory Results Laboratory Results - last 24 hr 12/22/22 12/22/22 12/22/22 12:41 12:41 12:41 WBC 8.72 RBC 4.62 L Hgb 15.0 Hct 42.3 MCV 91.6 MCH 32.5 MCHC 35.5 RDW Std Deviation 41.2 RDW Coeff of Nhi 12.4 Plt Count 194 MPV 11.2 Immature Gran % (Auto) 0.7 Neut % (Auto) 63.5 Lymph % (Auto) 22.7 Woodruff % (Auto) 7.1 Eos % (Auto) 5.2 Baso % (Auto) 0.8 Neut # (Auto) 5.54 Lymph # (Auto) 1.98 Woodruff # (Auto) 0.62 H Eos # (Auto) 0.45 Baso # (Auto) 0.07 Immature Gran # (Auto) 0.06 PT 11.3 INR 1.0 Sodium 137 Potassium 4.5 Chloride 104 Carbon Dioxide 27 Anion Gap 6 BUN 19 Creatinine 1.18 Est Cr Clr Drug Dosing 98.3 Est GFR ( Amer) 80.6 Est GFR (Non-Af Amer) 69.5 BUN/Creatinine Ratio 16.1 Glucose 90 Lactate Calcium 8.1 L Magnesium 2.0 Total Bilirubin 0.6 AST 50 H ALT 85 H Alkaline Phosphatase 78 Troponin I High Sens 8.8 B-Natriuretic Peptide Total Protein 6.0 Albumin 3.8 Globulin 2.2 L Albumin/Globulin Ratio 1.7 Procalcitonin TSH 12/22/22 12/22/22 12/22/22 12:41 14:12 14:12 WBC RBC Hgb Hct MCV MCH MCHC RDW Std Deviation RDW Coeff of Nhi Plt Count MPV Immature Gran % (Auto) Neut % (Auto) Lymph % (Auto) Woodruff % (Auto) Eos % (Auto) Baso % (Auto) Neut # (Auto) Lymph # (Auto) Woodruff # (Auto) Eos # (Auto) Baso # (Auto) Immature Gran # (Auto) PT INR Sodium Potassium Chloride Carbon Dioxide Anion Gap BUN Creatinine Est Cr Clr Drug Dosing Est GFR ( Amer) Est GFR (Non-Af Amer) BUN/Creatinine Ratio Glucose Lactate 2.3 H* Calcium Magnesium Total Bilirubin AST ALT Alkaline Phosphatase Troponin I High Sens B-Natriuretic Peptide 166 H Total Protein Albumin Globulin Albumin/Globulin Ratio Procalcitonin < 0.05 TSH 12/22/22 12/23/22 12/23/22 16:00 04:21 04:21 WBC 9.16 RBC 4.24 L Hgb 13.8 L Hct 39.3 L MCV 92.7 MCH 32.5 MCHC 35.1 RDW Std Deviation 42.7 RDW Coeff of Nhi 12.6 Plt Count 183 MPV 10.7 Immature Gran % (Auto) Neut % (Auto) Lymph % (Auto) Woodruff % (Auto) Eos % (Auto) Baso % (Auto) Neut # (Auto) Lymph # (Auto) Woodruff # (Auto) Eos # (Auto) Baso # (Auto) Immature Gran # (Auto) PT INR Sodium 136 Potassium 4.2 Chloride 104 Carbon Dioxide 28 Anion Gap 4 BUN 18 Creatinine 1.18 Est Cr Clr Drug Dosing 86.4 Est GFR ( Amer) 80.6 Est GFR (Non-Af Amer) 69.5 BUN/Creatinine Ratio 15.3 Glucose 84 Lactate 2.0 Calcium 8.4 L Magnesium 2.0 Total Bilirubin 0.7 AST 45 H ALT 79 H Alkaline Phosphatase 72 Troponin I High Sens B-Natriuretic Peptide Total Protein 5.9 L Albumin 3.8 Globulin 2.1 L Albumin/Globulin Ratio 1.8 Procalcitonin TSH 4.054
--- NOTE | 2022-12-23 12:44 | Electrocardiogram Report ---
Test Reason : Blood Pressure : / mmHG Vent. Rate : 096 BPM Atrial Rate : 000 BPM P-R Int : 000 ms QRS Dur : 080 ms QT Int : 342 ms P-R-T Axes : 000 057 046 degrees QTc Int : 432 ms Atrial fibrillation Abnormal ECG When compared with ECG of 22-DEC-2022 12:23, No significant change was found Confirmed by Ruben Snyder ([id number]) on 12/23/2022 12:44:20 PM Referred By: REFERRED SELF Confirmed By:Ruben Snyder
--- NOTE | 2022-12-23 19:23 | Hospitalist Progress Note ---
Date of Service December 23, 2022 Assessment & Plan (1) Atrial fibrillation with RVR: (2) Paroxysmal atrial fibrillation: (3) Acute hypotension: Plan: Patient is 52 y/o M with PMH paroxysmal atrial fibrillation, COPD, KEANU, anxiety, depression, GERD, HLD presented to ER from outpatient endoscopy suite for hypotension after EGD. Patient had reported desaturations at end of procedure that resolved with hand mask ventilation. Had subsequent bradycardia down into the 20s and was given glycopyrrolate emergently with reported improvement is reported esmolol given due to tachycardia. Had Afib with rates 110s. Patient required continued pressor support in recovery and patient was without any medical complaints or symptoms. Upon ER arrival Heart rate in 120s initial BP 102/62 trended down SBP in the 70- 80s. He had total 2L NSS and was started on norepinephrine drip. BPs improved and norepinephrine discontinued. Patient heart rate varied in high 90s to 120s with SBP 105. Hypotension current improved, Suspect some relation to Afib RVR. SBP 119 HR 100-120's on admission. Negative initial HS troponin Monitor on telemetry metoprolol tartrate po ordered Patient not on anticoagulation secondary to history intellectual disability per cardiology outpatient note. Is on aspirin TSH 4 (wnl), magnesium levels 2 Echo obtained - LV is normal in size. There is borderline concentric LVH. LV wall motion is normal. EF 60 to 65%. There is mild to moderate mitral regurg. There is moderate tricuspid regurg. Cardiology consulted - metoprolol tartrate switched to succinate for HR control. No further testing recommended at this time. Recommend to treat KEANU. (4) Elevated LFTs: Plan: T bili: 0.6, AST: 50, ALT: 85, Alk Phos: 78. LFTs WNL on 07/02/22 Patient reports occasional ETOH use Monitor LFTs (5) Chronic obstructive pulmonary disease: Plan: No signs exacerbation Continue home inhalers, as needed nebs (6) KEANU (obstructive sleep apnea): Plan: Noncompliant with CPAP In ED noted to desaturate when sleeping. Reports his CPAP was recalled - and he does not have a new one - contacted CM - can not help w/ cpap at this time. If want to DC on oxygen needs nocturnal study done - current - nocturnal hypoxia study ordered. (7) Intellectual disability: (8) Anxiety and depression: Plan: Continue Lexapro, Abilify, Buspirone (9) GERD (gastroesophageal reflux disease): Plan: Continue PPI (10) Hyperlipidemia: Plan: Continue atorvastatin DVT Prophylaxis Lovenox SQ Full Code as per discussion with pt Follows with Dr Erickson for routine care Admission and Anticipated Discharge Date Admission Date: December 22, 2022 Subjective Pt seen in follow up bradycardia -> afib w/ RVR following EGD procedure and desaturation noted at the end of procedure has hx of afib and KEANU, KEANU not treated - pt says his cpap was recalled In ED noted to desaturate when sleeping Currently laying in bed in NAD, feeling well overall No chest pain, palpitations, shortness of breath. No abd. pain. Review of Systems Review of Systems: All systems reviewed & are unremarkable except as noted in Subjective Physical Exam Physical Exam: General: no acute distress, +obese M Head: normocephalic, atraumatic Eyes:conjunctiva non-injected, anicteric ENT: normal inspection external ears, nose, mucous membranes moist, poor dentition Neck: supple Lungs: clear, no respiratory distress, no wheezing/rhonchi/rales CV: irregular, no murmur, no pretibial edema Abd: +obese, normal BS, soft, non-tender Ext: moves extremities, no LE edema Neuro: A&O x 3, speech fluent, no facial asymmetry, moves extremities Skin: warm, dry Results & Data Results & Data Vital Signs (Past 12 Hours) Vital Signs Temp Pulse Pulse Resp BP BP Pulse Ox 12/23/22 19:14 36.6 C 86 18 111/78 95 12/23/22 17:45 12/23/22 15:30 77 12/23/22 15:20 36.5 C 82 18 91 12/23/22 12:33 84 16 94 12/23/22 11:00 94 H 23 97/81 L 94 12/23/22 10:01 90 109/79 94 12/23/22 09:30 88 116/79 12/23/22 08:30 95 H 19 107/74 95 12/23/22 08:03 95 H 13 101/80 93 12/23/22 10:20 84 13 91 12/23/22 07:50 100 H 17 95 12/23/22 07:43 92 H 12 109/86 96 12/23/22 07:40 105 H 15 98 12/23/22 07:20 125 H 19 64 L O2 Del Method O2 Flow Rate 12/23/22 19:14 Room Air 12/23/22 17:45 Room Air 12/23/22 15:30 12/23/22 15:20 Room Air 12/23/22 12:33 3 12/23/22 11:00 Room Air 12/23/22 10:01 Room Air 12/23/22 09:30 12/23/22 08:30 12/23/22 08:03 Room Air 12/23/22 10:20 3 12/23/22 07:50 Room Air 12/23/22 07:43 Room Air 12/23/22 07:40 Nasal Cannula 2 12/23/22 07:20 Room Air Laboratory Results 12/23/22 12/23/22 Range/Units 04:21 04:21 WBC 9.16 (4.8-10.8) K/ul RBC 4.24 L (4.70-6.10) M/uL Hgb 13.8 L (14.0-18.0) g/dl Hct 39.3 L (42.0-52.0) % MCV 92.7 (80.0-100.0) fL MCH 32.5 (25.0-34.0) pg MCHC 35.1 (32.0-36.0) g/dL RDW Std Deviation 42.7 (36.4-46.3) fL RDW Coeff of Nhi 12.6 (11.5-14.5) % Plt Count 183 (130-400) K/uL MPV 10.7 (9.4-12.4) fL Sodium 136 (136-145) mmol/L Potassium 4.2 (3.5-5.1) mmol/L Chloride 104 (98-107) mmol/L Carbon Dioxide 28 (21-32) mmol/L Anion Gap 4 (3-11) BUN 18 (6-23) mg/dl Creatinine 1.18 (0.6-1.4) mg/dl Est Cr Clr Drug Dosing 86.4 ml/min Est GFR ( Amer) 80.6 ml/min Est GFR (Non-Af Amer) 69.5 ml/min BUN/Creatinine Ratio 15.3 (10-20) Glucose 84 (70-99(Fasting)) mg/dl Calcium 8.4 L (8.6-10.3) mg/dl Magnesium 2.0 (1.7-2.4) mg/dl Total Bilirubin 0.7 (0.2-1.0) mg/dl AST 45 H (13-39) U/L ALT 79 H (7-52) U/L Alkaline Phosphatase 72 (34-104) U/L Total Protein 5.9 L (6.0-8.3) gm/dl Albumin 3.8 (3.4-5.0) gm/dl Globulin 2.1 L (2.5-4.0) gm/dl Albumin/Globulin Ratio 1.8 (0.9-2) TSH 4.054 (0.300-4.500) uIu/ml Medications Administered Current Inpatient Medications Acetaminophen (Acetaminophen 325 Mg Tab) 650 mg PO Q4H PRN PRN Reason: Pain or Fever Stop: 01/21/23 19:55 Aripiprazole (Aripiprazole 15 Mg Tab) 7.5 mg PO HS EVELIN Stop: 01/21/23 20:59 Last Admin: 12/22/22 22:44 Dose: 7.5 mg Aspirin (Aspirin 81 Mg Ectab) 81 mg PO DAILY EVELIN Stop: 01/22/23 08:59 Last Admin: 12/23/22 08:39 Dose: 81 mg Atorvastatin Calcium (Atorvastatin 20 Mg Tab) 20 mg PO HS EVELIN Stop: 01/21/23 20:59 Last Admin: 12/22/22 22:45 Dose: 20 mg Buspirone HCl (Buspirone 5 Mg Tab) 10 mg PO BID PRN PRN Reason: Anxiety Stop: 01/21/23 19:55 Enoxaparin Sodium (Enoxaparin Inj 40 Mg/0.4 Ml Syr) 40 mg SQ Q12H EVELIN Stop: 01/21/23 20:59 Last Admin: 12/23/22 08:39 Dose: 40 mg Escitalopram Oxalate (Escitalopram Oxalate 10 Mg Tab) 5 mg PO HS EVELIN Stop: 01/22/23 08:59 Fluticasone/Vilanterol (Fluticasone/Vilanterol 200/25mcg 14 Puffs/Inhaler) 1 puffs INH DAILY EVELIN Stop: 01/22/23 08:59 Last Admin: 12/23/22 08:40 Dose: 1 puffs Gabapentin (Gabapentin 600 Mg Tab) 600 mg PO BID EVELIN Stop: 01/21/23 20:59 Last Admin: 12/23/22 08:39 Dose: 600 mg Ipratropium [place] (Ipratropium [place] Neb Soln 0.02% 2.5 Ml Vial) 0.5 mg INH Q6R PRN PRN Reason: Shortness Of Breath Or Wheezing Stop: 01/21/23 19:55 Levalbuterol HCl (Levalbuterol 1.25 Mg/3 Ml Neb) 1.25 mg NEB Q6R PRN PRN Reason: Shortness Of Breath Or Wheezing Stop: 01/21/23 19:55 Meloxicam (Meloxicam 7.5 Mg Tab) 15 mg PO DAILY EVELIN Stop: 01/22/23 08:59 Last Admin: 12/23/22 08:39 Dose: 15 mg Metoprolol Succinate (Metoprolol Succ 25mg Ext Rel Tab) 25 mg PO BID EVELIN Stop: 01/22/23 20:59 Ondansetron HCl (Ondansetron Inj 2 Mg/Ml 2 Ml Vial) 4 mg IV Q6H PRN PRN Reason: Nausea Stop: 01/21/23 19:55 Pantoprazole Sodium (Pantoprazole 40 Mg Tab) 40 mg PO DAILY EVELIN Stop: 01/22/23 08:59 Last Admin: 12/23/22 08:39 Dose: 40 mg Polyethylene Glycol (Polyethylene (Miralax) 17 Gm Pack) 17 gm PO DAILY PRN PRN Reason: Constipation Stop: 01/21/23 19:55
[2022-12-23] MEDS: ATORVASTATIN 20 MG TAB PO SCH (20:36)
[2022-12-23] MEDS: ARIPiprazole 15 MG TAB PO SCH (20:36)
[2022-12-23] MEDS: METOPROLOL SUCC 25MG EXT REL TAB PO SCH (20:38)
[2022-12-24 06:30] LABS: Hematocrit (blood only) 40.8 % (42.0-52.0); Hemoglobin 14.4 g/dl (14.0-18.0); Mean Corpuscular Hemoglobin 33.1 pg (25.0-34.0); Mean Corpuscular Hgb Conc 35.3 g/dL (32.0-36.0); Mean Corpuscular Volume 93.8 fL (80.0-100.0); Mean Platelet Volume 10.7 fL (9.4-12.4); Platelet Count 175 K/uL (130-400); RDW Standard Deviation 41.3 fL (36.4-46.3); Red Blood Count 4.35 M/uL (4.70-6.10); White Blood Count 8.09 K/ul (4.8-10.8)
[2022-12-24 06:37] LABS: BUN Creatinine Ratio 12.1 (10-20); Calcium 8.8 mg/dl (8.6-10.3); Creatinine Clr Calc Pharmacy 68.4 ml/min; Est GFR (African American) 60.8 ml/min; Est GFR (Non-African American) 52.5 ml/min; Magnesium 2.1 mg/dl (1.7-2.4); Phosphorus 4.1 mg/dl (2.5-4.9); Potassium 4.5 mmol/L (3.5-5.1)
[2022-12-24] MEDS: ASPIRIN 81 MG ECTAB PO SCH (10:38)
[2022-12-24] MEDS: GABAPENTIN 600 MG TAB PO SCH (10:39)
[2022-12-24] MEDS: MELOXICAM 7.5 MG TAB PO SCH (10:39)
[2022-12-24] MEDS: PANTOprazole 40 MG TAB PO SCH (10:39)
[2022-12-24] MEDS: METOPROLOL SUCC 25MG EXT REL TAB PO SCH (10:39)
[2022-12-24] MEDS: ENOXAPARIN INJ 40 MG/0.4 ML SYR SQ SCH (10:40)
[2022-12-24] MEDS: FLUTICASONE/VILANTEROL 200/25MCG 14 PUFFS/INHALER INH SCH (12:35)
--- NOTE | 2022-12-24 14:19 | Discharge Summary ---
Date of Service December 24, 2022 Admission HPI Per Admitting Provider Patient is 52 y/o M with PMH paroxysmal atrial fibrillation, COPD, KEANU, anxiety, depression, GERD, HLD presented to ER from outpatient endoscopy suite for hypotension. History obtained from patient, outpatient chart review. Patient was having EGD at [facility] today. Anesthesia note reviewed and is reported patient had desaturations at end of procedure that resolved with hand mask ventilation. Patient had subsequent bradycardia down into the 20s and was given glycopyrrolate emergently with reported improvement is reported esmolol given due to tachycardia on top of baseline Afib with rates 110s. Patient required continued pressor support in recovery and patient was without any medical complaints or symptoms. He was transported to [facility] by EMS. Upon ER arrival Heart rate in 120s initial BP 102/62 trended down SBP in the 70-80s. He had total 2L NSS and was started on norepinephrine drip. BPs improved and norepinephrine discontinued. Patient heart rate varied into high 90s to 120s with SBP 105. Patient states that he thinks he took Toprol tartrate 25 mg this morning. Denies chest pain, shortness of breath, palpitations, dizziness. Patient was without any complaint except for that he feels hungry. Denies fever/chills, diaphoresis, N/V/D/C, LOPEZ, dizziness, syncope, vision changes, neck pain, cough, sore throat,rhinorrhea, abdominal pain, paresthesias, weakness, extremity edema, rashes, urinary symptoms. Admission Exam Per Admitting Provider General: no acute distress, +obese Head: normocephalic, atraumatic Eyes:conjunctiva non-injected, anicteric ENT: normal inspection external ears, nose, mucous membranes moist, poor dentition Neck: supple, trachea midline Lungs: clear, no respiratory distress, no wheezing/rhonchi/rales CV: irregularly irregular, rate 120, no murmur, no pretibial edema Abd: +protuberant, normal BS, soft, non-tender Ext: no cyanosis, no calf tenderness Neuro: A&O x 3, no focal deficits noted Skin: warm, dry Principal Diagnosis Hypoxia, hypotension post procedure - secondary to anesthesia, following with Afib w/ RVR Untreated KEANU Discharge Exam General: no acute distress, +obese M Head: normocephalic, atraumatic Eyes:conjunctiva non-injected, anicteric ENT: normal inspection external ears, nose, mucous membranes moist, poor dentition Neck: supple Lungs: clear, no respiratory distress, no wheezing/rhonchi/rales CV: irregular, no murmur, no pretibial edema Abd: +obese, normal BS, soft, non-tender Ext: moves extremities, no LE edema Neuro: A&O x 3, speech fluent, no facial asymmetry, moves extremities Skin: warm, dry Discharge Data Allergies Allergy/AdvReac Type Severity Reaction Status Date / Time No Known Allergies Allergy Mild Verified 01/22/21 23:24 Consultations 12/22/22 16:27 ED Decision to Admit Stat 12/23/22 08:00 Consult Cardiology Routine Ordered Studies 12/22/22 15:03 CT for pulmonary embolism PE [CT angio chest PE protocol] Stat FINDINGS: No pulmonary emboli are identified although the lower lobe segmental and subsegmental pulmonary arteries are suboptimally opacified. There is no thoracic aortic dissection. Size of the heart is normal. There is no pericardial effusion. There is no thoracic lymphadenopathy. No pneumothorax or pleural effusion is present. Central airways are patent. Groundglass and linear densities favor atelectasis. No consolidation is identified. No pneumomediastinum is present. Hepatic steatosis is incidentally noted. IMPRESSION: 1. No pulmonary emboli identified although lower lobe segmental and subsegmental pulmonary arteries suboptimally opacified. 2. No acute intrathoracic findings. 3. Hepatic steatosis. Hospital Course (1) Atrial fibrillation with RVR: (2) Paroxysmal atrial fibrillation: (3) Acute hypotension: Patient is 52 y/o M with PMH paroxysmal atrial fibrillation, COPD, KEANU, anxiety, depression, GERD, HLD presented to ER from outpatient endoscopy suite for hypotension after EGD. Patient had reported desaturations at end of procedure that resolved with hand mask ventilation. Had subsequent bradycardia down into the 20s and was given glycopyrrolate emergently with reported improvement is reported esmolol given due to tachycardia. Had Afib with rates 110s. Patient required continued pressor support in recovery and patient was without any medical complaints or symptoms. Upon ER arrival Heart rate in 120s initial BP 102/62 trended down SBP in the 70- 80s. He had total 2L NSS and was started on norepinephrine drip. BPs improved and norepinephrine discontinued. Patient heart rate varied in high 90s to 120s with SBP 105. Hypotension current improved, Suspect some relation to Afib RVR. SBP 119 HR 100-120's on admission. Negative initial HS troponin Monitor on telemetry metoprolol tartrate po ordered Patient not on anticoagulation secondary to history intellectual disability per cardiology outpatient note. Is on aspirin TSH 4 (wnl), magnesium levels 2 Echo obtained - LV is normal in size. There is borderline concentric LVH. LV wall motion is normal. EF 60 to 65%. There is mild to moderate mitral regurg. There is moderate tricuspid regurg. Cardiology consulted - metoprolol tartrate switched to succinate for HR control. No further testing recommended at this time. Recommend to treat KEANU. (4) Elevated LFTs: T bili: 0.6, AST: 50, ALT: 85, Alk Phos: 78. LFTs WNL on 07/02/22 Patient reports occasional ETOH use Monitor LFTs (5) Chronic obstructive pulmonary disease: No signs exacerbation Continue home inhalers, as needed nebs (6) KEANU (obstructive sleep apnea): Noncompliant with CPAP In ED noted to desaturate when sleeping. Reports his CPAP was recalled - and he does not have a new one - contacted CM - If want to DC on oxygen needs nocturnal study done - current - nocturnal hypoxia study ordered and pt qualifies for 2L of suppl. O2 when sleeping. Script provided. print shop manager also contacted [employer] - per her note- Patient has a C-pap through [facility] and would also like them to supply his oxygen. Patient states that his C- pap has been recalled and he never received a new one. Asked if he ever notified the oxygen company and he replied: "I don't know. I don't think so.". Referral and script for home oxygen faxed to [facility] in [place]. Spoke with [facility] and they said it is the patient's responsibility to call [employer] ([phone]). Provided this information to patient and put the contact information in the discharge instructions. [facility] states that they have been trying to get a hold of patient for years, but they didn't have his updated phone #. Patient confirmed that his correct phone # is [phone]. Pt will need further follow up as outpt - follow up w/ PCP arranged for 12/30/2022 (7) Intellectual disability: (8) Anxiety and depression: Continue Lexapro, Abilify, Buspirone (9) GERD (gastroesophageal reflux disease): Continue PPI (10) Hyperlipidemia: Continue atorvastatin CLAY Cr elevated today at 1.5 - likely secondary to events leading to hospitalization. Encouraged PO intake Follow up with PCP at next appointment - repeat BMP recommended. Follows with Dr Erickson for routine care Total Time Total Time Spent Total Time Spent (In Minutes): 40 Discharge Plan Discharge Items Patient Disposition: Home - Self-Care Reason For Visit: HYPOTENSION Discharge Diagnosis: Hypoxia, hypotension post procedure - secondary to anesthesia, following with Afib w/ RVR Untreated KEANU Activity: Per Instructions section Non-emergency contact: Primary Care Provider Call non-emergency contact if: you have any medication questions and your symptoms worsen Follow-up/Referrals: Louisa Erickson MD [Primary Care Provider] - (Date & Time 12/30/2022 3:00 PM Provider Umberto Crane MD Department Family Medicine [facility] ) Diet: Regular Addtl Attending Provider Instructions: Follow up with your primary care doctor within 1 week. Your appointment was scheduled for 12/30. You should use cpap at night - our sample case porter contacted [employer] about your machine -> you need to call [employer] ([phone]). In the meantime, use supplemental oxygen - 2L at night or anytime when you sleep. Discuss this with your primary care doctor as well. Lastly, you were seen by engagement quality consultant in the hospital - your metoprol tartrate was changed to succinate (long acting type) - take it as prescribed. Pending Studies at Discharge: No Stand-Alone Forms: My [facility] Swirl, Smoking Cessation Medications and DC Order Prescriptions: New metoprolol succinate 25 mg Tablet Extended Release 24 Hr 25 mg PO BID 30 Days Qty: 60 0RF Continued albuterol sulfate 90 mcg/actuation Hfa Aerosol Inhaler 1 puff INHALATION Q4 PRN (Reason: Shortness Of Breath) atorvastatin 20 mg Tablet 20 mg PO HS omega-3 fatty acids-fish oil [Fish Oil] 360-1,200 mg Capsule 1 cap PO QAM omeprazole 20 mg capsule,delayed release(DR/EC) 20 mg PO DAILY aspirin 81 mg Tablet,Delayed Release (Dr/Ec) 81 mg PO DAILY fluticasone propion-salmeterol 250-50 mcg/dose blister with device 1 inh INHALATION BID Combivent Respimat 20-100 mcg/actuation mist 1 puff INHALATION QID meloxicam 15 mg tablet 15 mg PO DAILY buspirone 10 mg tablet 10 mg PO BID PRN (Reason: Anxiety) gabapentin 300 mg capsule 600 mg PO BID aripiprazole 15 mg tablet 7.5 mg PO HS escitalopram oxalate 5 mg tablet 5 mg PO QAM Discontinued metoprolol tartrate 25 mg Tablet 25 mg PO BID Discharge Orders: Discharge Order (Routine); Ordered 12/24/22 Ordered By: Nikhil Weaver/Other Patient Handouts: CPAP Admission Data Admit Date/Time: 12/22/22 17:01 Attending Provider: Nikhil Ellis Admit Provider: Amy Reyes Primary Care Provider: Louisa Erickson Other Providers: Amy Reyes ; Lio Davis Other Interventions: Discharge Summary Assessment (RN) Last Done: 12/24/22 14:14
== END 2022-12-24 16:48 | disposition home or self-care (01) ==
LOC: EDINP 12:10 → ED 12:10 → SUATTDRO 17:01 → 2E 19:57